=== PATIENT | male | born 1940 | race Caucasian/White ===

== ENCOUNTER → 2017-03-08 | Outpatient (CLI) | payer MEDICARE ==
[2016-03-05 11:10] VITALS: BP 134/84
[~2017-03-08] MED LIST: ASPIRIN ADULT L81 M3 PO; CALCIUM1 CAP PO; GAS DISTRESS1 TAB PO; LORAZEPAM2 MG PO; MULTI VITAMINS1 TAB PO; PRILOSEC 20MG20 MG PO; [UNRECOGNIZED DRUG - OTHER] NS
== END ==
LOC: RAD 09:39
DX: M54.5 Low back pain (principal); M51.46 Schmorl's nodes, lumbar region

== ENCOUNTER → 2017-03-26 | Outpatient (CLI) | payer MEDICARE ==
[2016-03-05 11:10] VITALS: BP 134/84
== END ==
LOC: LAB 16:03
DX: M85.89 Other specified disorders of bone density and structure, multiple sites (principal); E03.4 Atrophy of thyroid (acquired)

== ENCOUNTER → 2021-10-06 | Outpatient (CLI) | payer MEDICARE | LOC: RAD 15:26 | DX: M43.8X5 Other specified deforming dorsopathies, thoracolumbar region (principal) ==

== ENCOUNTER 2022-12-08 10:11 | Inpatient (IN) | payer MEDICARE ==
[~2022-12-08] VITALS: Ht 170.2 cm; Wt 58.5 kg
[2022-12-08] MEDS ORDERED: ASCORBIC ACID500 M3 PO (11:39)
[2022-12-08] MEDS ORDERED: CALCIUM CARBON500 M3 PO (11:43)
[2022-12-08] MEDS ORDERED: CETIRIZINE HCL10 MG PO (11:44)
[2022-12-08] MEDS ORDERED: ROXICODONE 55 MG/TAB PO (11:46)
[2022-12-08] MEDS ORDERED: VITAMIN D-40010 MCG PO (11:47)
[2022-12-08] MEDS ORDERED: ATIVAN1 M1 PO (11:49)
[2022-12-08] MEDS ORDERED: TYLENOL 325MG325 MG PO (11:52)
[2022-12-08] MEDS ORDERED: GOOD SENSE ASPI81 M1 PO (11:53)
[2022-12-08] MEDS ORDERED: MULTIVITAMIN1 EACH PO (11:54)
[2022-12-08] MEDS ORDERED: PRILOSEC 20MG20 MG PO (11:55)
[2022-12-08] MEDS ORDERED: GAS RELIEF125 MG PO (11:56)
[2022-12-08 12:51] VITALS: BP 122/84
[2022-12-08 13:30] LABS: BASO # 0.01 K/mm3 (0.02-0.10); EOS # 0.06 K/mm3 (0.04-0.40); EOS % 0.5 % (0.0-4.0); HEMATOCRIT 33.5 % (42.0-52.0); HEMOGLOBIN 11.1 g/dL (13.5-18.0); LYMPH# 0.61 K/mm3 (1.50-4.00); MEAN CELL VOLUME 105 fl (78-100); MEAN CORPUSCULAR HEMOGLOBIN 35 pg (27-31); MEAN CORPUSCULAR HGB CONC 33 g/dL (33-37); MONO # 1.41 K/mm3 (0.20-0.80); NEU # 9.99 K/mm3 (1.40-6.50); PLATELET COUNT 219 K/mm3 (130-400); RED CELL DISTRIBUTION WIDTH 13.3 % (11.5-14.5); WHITE BLOOD COUNT 12.3 K/mm3 (4.8-10.8)
[2022-12-08 13:33] LABS: ALBUMIN 3.5 g/dL (3.4-4.8)
[2022-12-08 13:34] LABS: POTASSIUM 4.4 mmol/L (3.5-5.1)
[2022-12-08 13:35] LABS: CALCIUM 9.7 mg/dL (8.3-10.5)
[2022-12-08 13:36] LABS: TOTAL PROTEIN 7.2 g/dL (6.2-8.1)
[2022-12-08 13:38] LABS: TOTAL BILIRUBIN 1.2 mg/dL (0.2-1.2)
[2022-12-08 15:54] LABS: URINE APPEARANCE CLEAR; URINE BILIRUBIN NEGATIVE (NEGATIVE); URINE BLOOD NEGATIVE (NEGATIVE); URINE COLOR YELLOW; URINE GLUCOSE NEGATIVE (NEGATIVE); URINE KETONE NEGATIVE (NEGATIVE); URINE LEUKOCYTE ESTERASE NEGATIVE (NEGATIVE); URINE NITRATE NEGATIVE (NEGATIVE); URINE PROTEIN(semi-quant) 1+ (NEGATIVE); URINE UROBILINOGEN NORMAL (NORMAL)
[2022-12-08 15:55] LABS: URINE MUCUS PRESENT (NOT PRESENT)
[2022-12-08 17:02] VITALS: BP 131/81
[2022-12-08 17:12] VITALS: BP 131/81
[2022-12-08 17:39] VITALS: BP 131/81
[2022-12-09 06:17] VITALS: BP 150/84
[2022-12-09 09:51] LABS: URINE APPEARANCE CLEAR; URINE BILIRUBIN 1+ (NEGATIVE); URINE BLOOD NEGATIVE (NEGATIVE); URINE COLOR YELLOW; URINE GLUCOSE NEGATIVE (NEGATIVE); URINE KETONE NEGATIVE (NEGATIVE); URINE LEUKOCYTE ESTERASE NEGATIVE (NEGATIVE); URINE MUCUS PRESENT (NOT PRESENT); URINE NITRATE NEGATIVE (NEGATIVE); URINE PROTEIN(semi-quant) 1+ (NEGATIVE); URINE UROBILINOGEN 1 mg/dL (NORMAL); URINE WBC 0-1 /hpf (0-3)
[2022-12-09 17:42] VITALS: BP 135/80
[2022-12-10 06:04] VITALS: BP 144/88
[2022-12-10 17:52] VITALS: BP 120/81
[2022-12-11 05:37] VITALS: BP 121/75
[2022-12-11 17:08] VITALS: BP 103/65
[2022-12-12 05:50] VITALS: BP 152/86
[2022-12-12 14:49] VITALS: BP 108/70
[2022-12-13 06:12] VITALS: BP 129/78
[2022-12-13 17:14] VITALS: BP 111/75
[2022-12-14 06:05] VITALS: BP 117/75
[2022-12-14 15:44] VITALS: BP 106/70
[2022-12-14 16:06] LABS: BASO # 0.03 K/mm3 (0.02-0.10); EOS # 0.17 K/mm3 (0.04-0.40); EOS % 1.4 % (0.0-4.0); HEMATOCRIT 32.6 % (42.0-52.0); HEMOGLOBIN 10.5 g/dL (13.5-18.0); LYMPH# 0.62 K/mm3 (1.50-4.00); MEAN CELL VOLUME 108 fl (78-100); MEAN CORPUSCULAR HEMOGLOBIN 35 pg (27-31); MEAN CORPUSCULAR HGB CONC 32 g/dL (33-37); MONO # 0.94 K/mm3 (0.20-0.80); NEU # 10.35 K/mm3 (1.40-6.50); PLATELET COUNT 403 K/mm3 (130-400); RED BLOOD COUNT 3.02 M/mm3 (4.20-5.60); RED CELL DISTRIBUTION WIDTH 13.8 % (11.5-14.5); WHITE BLOOD COUNT 12.3 K/mm3 (4.8-10.8)
[2022-12-14 16:10] LABS: ALBUMIN 3.2 g/dL (3.4-4.8); POTASSIUM 4.6 mmol/L (3.5-5.1); SODIUM 129 mmol/L (136-145)
[2022-12-14 16:11] LABS: CALCIUM 9.3 mg/dL (8.3-10.5)
[2022-12-14 16:12] LABS: GLUCOSE 93 mg/dL (75-110); TOTAL PROTEIN 6.5 g/dL (6.2-8.1)
[2022-12-14 16:13] LABS: CARBON DIOXIDE 26 mmol/L (23-31)
[2022-12-14 16:14] LABS: TOTAL BILIRUBIN 0.8 mg/dL (0.2-1.2)
[2022-12-14 16:18] LABS: AST-SGOT 33 U/L (5-34)
[2022-12-14 16:19] LABS: ALT/SGPT 31 U/L (0-55)
[2022-12-14 16:26] LABS: TROPONIN-I < 0.030 ng/mL (<0.030)
[2022-12-14 16:33] LABS: URINE APPEARANCE CLEAR; URINE BILIRUBIN 1+ (NEGATIVE); URINE BLOOD NEGATIVE (NEGATIVE); URINE COLOR YELLOW; URINE GLUCOSE NEGATIVE (NEGATIVE); URINE KETONE NEGATIVE (NEGATIVE); URINE LEUKOCYTE ESTERASE NEGATIVE (NEGATIVE); URINE NITRATE NEGATIVE (NEGATIVE); URINE PROTEIN(semi-quant) NEGATIVE (NEGATIVE); URINE UROBILINOGEN 1 mg/dL (NORMAL); URINE WBC 0-1 /hpf (0-3)
[2022-12-14 16:37] LABS: URINE MUCUS PRESENT (NOT PRESENT)
[2022-12-14 16:44] LABS: D-DIMER 8.81 mg/L FEU (0.15-0.50)
[2022-12-14 17:07] VITALS: BP 106/70
[2022-12-15 05:43] VITALS: BP 122/80
[2022-12-15 17:18] VITALS: BP 133/89
[2022-12-16 06:01] VITALS: BP 137/78
[2022-12-16 08:00] VITALS: BP 138/86
[2022-12-16 17:04] VITALS: BP 103/68
[2022-12-17 05:47] VITALS: BP 129/80
[2022-12-17 17:52] VITALS: BP 138/85
[2022-12-18 06:15] VITALS: BP 164/91
[2022-12-18 17:42] VITALS: BP 138/87
[2022-12-19 06:17] VITALS: BP 161/84
[2022-12-19 15:17] VITALS: BP 148/81
[2022-12-20 06:09] VITALS: BP 166/91
[2022-12-20 17:40] VITALS: BP 148/86
[2022-12-21 05:54] VITALS: BP 164/94
[2022-12-21 18:49] VITALS: BP 131/83
[2022-12-22 06:19] VITALS: BP 160/94
[2022-12-22 17:34] VITALS: BP 119/81
[2022-12-23 05:32] VITALS: BP 137/84
[2022-12-23 07:27] LABS: BASO # 0.04 K/mm3 (0.02-0.10); EOS # 0.16 K/mm3 (0.04-0.40); EOS % 2.5 % (0.0-4.0); HEMATOCRIT 32.2 % (42.0-52.0); HEMOGLOBIN 10.8 g/dL (13.5-18.0); LYMPH# 0.82 K/mm3 (1.50-4.00); MEAN CELL VOLUME 105 fl (78-100); MEAN CORPUSCULAR HEMOGLOBIN 35 pg (27-31); MEAN CORPUSCULAR HGB CONC 34 g/dL (33-37); MEAN PLATELET VOLUME 9.3 fl (7.4-10.4); MONO # 1.03 K/mm3 (0.20-0.80); NEU # 4.18 K/mm3 (1.40-6.50); PLATELET COUNT 323 K/mm3 (130-400); RED BLOOD COUNT 3.07 M/mm3 (4.20-5.60); RED CELL DISTRIBUTION WIDTH 13.3 % (11.5-14.5); WHITE BLOOD COUNT 6.3 K/mm3 (4.8-10.8)
[2022-12-23 07:33] LABS: ALBUMIN 2.9 g/dL (3.4-4.8)
[2022-12-23 07:34] LABS: CALCIUM 8.7 mg/dL (8.3-10.5)
[2022-12-23 07:35] LABS: TOTAL PROTEIN 5.9 g/dL (6.2-8.1)
[2022-12-23 07:37] LABS: TOTAL BILIRUBIN 0.5 mg/dL (0.2-1.2)
[2022-12-23 17:08] VITALS: BP 117/76
[2022-12-24 05:44] VITALS: BP 163/84
[2022-12-24 17:13] VITALS: BP 120/78
[2022-12-25 06:21] VITALS: BP 148/93
[2022-12-25 17:16] VITALS: BP 154/72
[2022-12-26 05:49] VITALS: BP 136/82
[2022-12-26 17:07] VITALS: BP 124/80
[2022-12-27 06:09] VITALS: BP 150/89
[2022-12-27 17:13] VITALS: BP 135/78
[2022-12-28 05:26] VITALS: BP 144/86
== END 2022-12-28 12:09 | disposition home health service (06) | DRG 559 ==
LOC: MED/SURG 10:11
PROVIDERS: Family Medicine; Nurse Practitioner; ADMIT Physician Assistant
DX: S22.089D Unspecified fracture of T11-T12 vertebra, subsequent encounter for fracture with routine healing (principal); J18.9 Pneumonia, unspecified organism; S22.49XD Multiple fractures of ribs, unspecified side, subsequent encounter for fracture with routine healing; S42.101D Fracture of unspecified part of scapula, right shoulder, subsequent encounter for fracture with routine healing; K44.9 Diaphragmatic hernia without obstruction or gangrene; K21.9 Gastro-esophageal reflux disease without esophagitis; R53.81 Other malaise; W10.9XXD Fall (on) (from) unspecified stairs and steps, subsequent encounter; Z20.822 Contact with and (suspected) exposure to COVID-19
CPT/HCPCS: J0696; J1940; J7050; Q9967

== ENCOUNTER → 2023-01-12 | Outpatient (CLI) | payer MEDICARE ==
[~2023-01-12] MED LIST changes: +ASCORBIC ACID500 M3 PO; +ATIVAN1 M1 PO; +CALCIUM CARBON500 M3 PO; +CETIRIZINE HCL10 MG PO; +GAS RELIEF125 MG PO; +GOOD SENSE ASPI81 M1 PO; +MULTIVITAMIN1 EACH PO; +ROXICODONE 55 MG/TAB PO; +TYLENOL 325MG325 MG PO; +VITAMIN D-40010 MCG PO
[2023-01-12 12:27] LABS: BASO # 0.02 K/mm3 (0.02-0.10); EOS # 0.09 K/mm3 (0.04-0.40); HEMOGLOBIN 12.8 g/dL (13.5-18.0); LYMPH# 0.89 K/mm3 (1.50-4.00); MEAN CELL VOLUME 104 fl (78-100); MEAN CORPUSCULAR HEMOGLOBIN 34 pg (27-31); MEAN CORPUSCULAR HGB CONC 33 g/dL (33-37); MEAN PLATELET VOLUME 8.3 fl (7.4-10.4); MONO # 0.86 K/mm3 (0.20-0.80); NEU # 6.78 K/mm3 (1.40-6.50); PLATELET COUNT 319 K/mm3 (130-400); RED BLOOD COUNT 3.74 M/mm3 (4.20-5.60); RED CELL DISTRIBUTION WIDTH 13.9 % (11.5-14.5); WHITE BLOOD COUNT 8.7 K/mm3 (4.8-10.8)
== END ==
LOC: LAB 11:54
PROVIDERS: Internal Medicine
DX: Z12.5 Encounter for screening for malignant neoplasm of prostate (principal); D64.9 Anemia, unspecified; M81.0 Age-related osteoporosis without current pathological fracture; E78.2 Mixed hyperlipidemia; C44.91 Basal cell carcinoma of skin, unspecified; F41.1 Generalized anxiety disorder; J18.9 Pneumonia, unspecified organism; K44.9 Diaphragmatic hernia without obstruction or gangrene; M48.54XA Collapsed vertebra, not elsewhere classified, thoracic region, initial encounter for fracture; Y95 Nosocomial condition

== ENCOUNTER → 2023-07-20 | Outpatient (CLI) | payer MEDICARE | LOC: RAD 10:56 | DX: R14.0 Abdominal distension (gaseous) (principal) ==

== ENCOUNTER → 2024-03-13 | Outpatient (CLI) | payer MEDICARE ==
[2024-03-13 13:15] LABS: BASO # 0.02 K/mm3 (0.02-0.10); EOS % 1.6 % (0.0-4.0); HEMATOCRIT 42.2 % (42.0-52.0); HEMOGLOBIN 14.2 g/dL (13.5-18.0); LYMPH# 0.66 K/mm3 (1.50-4.00); MEAN CELL VOLUME 106 fl (78-100); MEAN CORPUSCULAR HEMOGLOBIN 36 pg (27-31); MEAN CORPUSCULAR HGB CONC 34 g/dL (33-37); MEAN PLATELET VOLUME 8.5 fl (7.4-10.4); MONO # 0.79 K/mm3 (0.20-0.80); PLATELET COUNT 226 K/mm3 (130-400); RED BLOOD COUNT 3.97 M/mm3 (4.20-5.60); WHITE BLOOD COUNT 6.1 K/mm3 (4.8-10.8)
[2024-03-13 13:24] LABS: CALCIUM 9.2 mg/dL (8.3-10.5)
[2024-03-13 13:25] LABS: TOTAL PROTEIN 7.1 g/dL (6.2-8.1)
[2024-03-13 13:27] LABS: TOTAL BILIRUBIN 0.5 mg/dL (0.2-1.2)
[2024-03-13 13:32] LABS: MAGNESIUM 1.82 mg/dL (1.60-2.60)
[2024-03-13 22:01] LABS: TESTOSTERONE 345 ng/dL (221-716)
[2024-03-13 22:20] LABS: FOLATE (FOLIC ACID) 14.8 ng/mL (2.0-20.0)
== END ==
LOC: RAD 12:22
PROVIDERS: Internal Medicine
DX: Z12.11 Encounter for screening for malignant neoplasm of colon (principal); Z12.5 Encounter for screening for malignant neoplasm of prostate; K44.9 Diaphragmatic hernia without obstruction or gangrene; E78.2 Mixed hyperlipidemia; K90.9 Intestinal malabsorption, unspecified; C43.9 Malignant melanoma of skin, unspecified; F52.21 Male erectile disorder; R06.00 Dyspnea, unspecified

== ENCOUNTER → 2024-06-06 | Outpatient (CLI) | payer MEDICARE ==
[2024-06-06 11:20] LABS: BASO # 0.03 K/mm3 (0.02-0.10); EOS # 0.08 K/mm3 (0.04-0.40); EOS % 1.3 % (0.0-4.0); HEMATOCRIT 39.6 % (42.0-52.0); HEMOGLOBIN 13.2 g/dL (13.5-18.0); LYMPH# 0.66 K/mm3 (1.50-4.00); MEAN CELL VOLUME 109 fl (78-100); MEAN CORPUSCULAR HEMOGLOBIN 36 pg (27-31); MEAN CORPUSCULAR HGB CONC 33 g/dL (33-37); MEAN PLATELET VOLUME 8.2 fl (7.4-10.4); MONO # 0.82 K/mm3 (0.20-0.80); NEU # 4.61 K/mm3 (1.40-6.50); PLATELET COUNT 224 K/mm3 (130-400); RED BLOOD COUNT 3.63 M/mm3 (4.20-5.60); RED CELL DISTRIBUTION WIDTH 12.5 % (11.5-14.5); WHITE BLOOD COUNT 6.2 K/mm3 (4.8-10.8)
[2024-06-06 11:22] LABS: ALBUMIN 3.7 g/dL (3.4-4.8)
[2024-06-06 11:24] LABS: CALCIUM 9.7 mg/dL (8.3-10.5)
[2024-06-06 11:25] LABS: TOTAL PROTEIN 6.6 g/dL (6.2-8.1)
[2024-06-06 11:27] LABS: TOTAL BILIRUBIN 0.5 mg/dL (0.2-1.2)
[2024-06-06 11:31] LABS: MAGNESIUM 1.69 mg/dL (1.60-2.60)
== END ==
LOC: LAB 11:00
PROVIDERS: Internal Medicine
DX: D64.9 Anemia, unspecified (principal); R06.00 Dyspnea, unspecified; E44.0 Moderate protein-calorie malnutrition

== ENCOUNTER → 2024-08-24 | Outpatient (CLI) | payer MEDICARE ==
[2024-08-24 11:28] LABS: HEMATOCRIT 35.8 % (42.0-52.0); HEMOGLOBIN 11.7 g/dL (13.5-18.0); MEAN CELL VOLUME 112 fl (78-100); MEAN CORPUSCULAR HEMOGLOBIN 36 pg (27-31); MEAN CORPUSCULAR HGB CONC 33 g/dL (33-37); MEAN PLATELET VOLUME 8.2 fl (7.4-10.4); PLATELET COUNT 292 K/mm3 (130-400); RED BLOOD COUNT 3.21 M/mm3 (4.20-5.60); RED CELL DISTRIBUTION WIDTH 12.8 % (11.5-14.5); WHITE BLOOD COUNT 8.2 K/mm3 (4.8-10.8)
[2024-08-24 11:37] LABS: ALBUMIN 3.5 g/dL (3.4-4.8)
[2024-08-24 11:38] LABS: CALCIUM 9.3 mg/dL (8.3-10.5)
[2024-08-24 11:40] LABS: TOTAL PROTEIN 6.9 g/dL (6.2-8.1)
[2024-08-24 11:41] LABS: TOTAL BILIRUBIN 0.4 mg/dL (0.2-1.2)
[2024-08-24 11:46] LABS: MAGNESIUM 1.61 mg/dL (1.60-2.60)
[2024-08-24 11:54] LABS: LYMPHOCYTE 5 % (20-51); MONOCYTE 7 % (3-10); NEUTROPHILS 85 % (42-75)
[2024-08-24 22:54] LABS: PTH,INTACT 64.5 pg/mL (6.6-88.9)
== END ==
LOC: LAB 11:00
PROVIDERS: Internal Medicine
DX: E78.2 Mixed hyperlipidemia (principal); D64.9 Anemia, unspecified; M81.0 Age-related osteoporosis without current pathological fracture; K90.9 Intestinal malabsorption, unspecified

== ENCOUNTER 2024-09-26 14:07 | Inpatient (IN) | payer MEDICARE ==
[~2024-09-26] VITALS: Ht 170.2 cm; Wt 40.5 kg
[2024-09-26 16:00] VITALS: BP 124/80
[2024-09-26] MEDS ORDERED: FLUTICASON0.05 MG/Ac NS (17:25)
[2024-09-26] MEDS ORDERED: LINEZOLID PO (17:25)
--- NOTE | 2024-09-26 17:42 | NUR ---
PATIENT ARRIVED WITH FROM [facility]IA [facility]. HE WAS ASSISTED X2 OUT OF VEHICLE INTO WHEELCHAIR AND INTO ROOM. HE HAS A SPECIAL PRESSURE REDUCTION MATTRESS DUE TO HIS PRESSURE ULCERS ON THORACIC SPICE X3 AND 2 ON COCCYX. PROVIDER AND WOUND CARE NURSE CLEANED, MEASURED AND DRESSED ULCERS ON PATIENT. (PLEASE SEE PROVIDERS NOTE ON WOUND CARE AND PRESSURE ULCER DOCUMENTATION, MARIAN CESPEDES.) PROVIDER AND WOUND CARE NURSE ALSO CLEANED AND REMOVED THE DRY FLAKY SKIN ON PATIENT'S FEET. PATIENT ALSO HAS ON LEFT HEEL A RED, BOGGY, NON-BLANCHABLE AREA. PATIENT DENIES PAIN WHEN ASKED. HE IS 93LBS. THERE WAS 3+ PITTING EDEMA NOTED IN RIGHT FOOT. HE IS ABLE TO MOVE EXTREMITIES BUT LIMITED ON RANGE OF MOTION. PATIENT STATES THAT HE DOES NOT WALK WELL OR FAR. HE REQUESTED AND URINAL TO HAVE A BEDSIDE AND WILL USE CALL LIGHT IF HE NEEDS TO HAVE A BM, AND WOULD PREFER A CAMODE TO BE NEXT TO BED FOR THAT. HE IS ALERT AND ORIENTED X4. HE IS PLEASENT AND VERY COOPERATIVE WITH CARE. NASAL SWAB OBTAINED TO TEST FOR MRSA. PATIENT IS IN BED AT THIS TIME. BLUE SOCKS ARE CURRENTLY ON PATIENT THE YELLOW ONES WERE TOO BIG. PATIENT IS REQUESTING ONE SIDE RAIL BE DONE SO HE CAN REACH THE SIDE TABLE, BUT THE MATTRESS WILL NOT ROTATE SIDE TO SIDE IF A SIDE RAIL IS DOWN. PROVIDER WILL TALK WITH PATIENT ABOUT THE MATTRESS AND THE PURPOSE OF IT ROTATING TO HELP KEEP PRESSURE OFF HIS BACK. STAFF WILL ALSO ASSIST MAKING SURE PATIENT IS ROTATED ORDERED. STAFF WILL CONTINUE TO MONITOR.
[2024-09-26] MEDS ORDERED: Acetaminophen 500 MG TAB PO PRN ×2 (18:00→18:30)
[2024-09-26] MEDS ORDERED: Polyethylene Glycol 3350 Powder 17 GM PACKET PO PRN (18:00)
[2024-09-26] MEDS ORDERED: Docusate Sodium 100 MG CAP PO PRN (18:15)
[2024-09-26] MEDS ORDERED: ACETAMINOPHEN500 M7 PO (18:17)
[2024-09-26 19:41] VITALS: BP 164/98
[2024-09-26] MEDS ORDERED: LORazepam 0.5 MG TABLET PO SCH (21:00)
[2024-09-26] MEDS ORDERED: Cetirizine 10 MG TAB PO SCH (21:00)
[2024-09-26] MEDS ORDERED: Linezolid 600 MG TAB PO SCH (21:00)
[2024-09-27 05:58] LABS: BASO # 0.02 K/mm3 (0.02-0.10); EOS # 0.04 K/mm3 (0.04-0.40); EOS % 0.8 % (0.0-4.0); HEMATOCRIT 36.1 % (42.0-52.0); HEMOGLOBIN 11.6 g/dL (13.5-18.0); LYMPH# 0.69 K/mm3 (1.50-4.00); MEAN CELL VOLUME 115 fl (78-100); MEAN CORPUSCULAR HEMOGLOBIN 37 pg (27-31); MEAN CORPUSCULAR HGB CONC 32 g/dL (33-37); MEAN PLATELET VOLUME 8.7 fl (7.4-10.4); MONO # 0.62 K/mm3 (0.20-0.80); PLATELET COUNT 231 K/mm3 (130-400); RED BLOOD COUNT 3.14 M/mm3 (4.20-5.60); RED CELL DISTRIBUTION WIDTH 13.6 % (11.5-14.5); WHITE BLOOD COUNT 4.8 K/mm3 (4.8-10.8)
[2024-09-27 06:14] LABS: CALCIUM 9.2 mg/dL (8.3-10.5)
[2024-09-27 06:15] LABS: TOTAL PROTEIN 6.3 g/dL (6.2-8.1)
[2024-09-27 06:17] LABS: TOTAL BILIRUBIN 0.3 mg/dL (0.2-1.2)
--- NOTE | 2024-09-27 07:00 | NUR ---
RESUMED CARE FROM STACEY SCHOFIELD.
--- NOTE | 2024-09-27 07:35 | NUR ---
PATIENT REFUSING TO GET OUT OF BED WITH electric spot welder. THIS RN WITH STACEY MC. EDUCATION PROVIDED TO PATIENT ON IMPORTANCE OF OFFLOADING WITH THORACIC ULCERS. PATIENT AGREEABLE TO GET OUT OF BED FOR MEALS. PATIENT REQUESTS CHANGES IN TIME FOR MEDICATIONS WELL MEDICATIONS D/C'D THAT HE IS NO LONGER TAKEN. AL HULL NOTIFIED AND NEW ORDERS OBTAINED. NO OTHER COMPLAINTS AT THIS TIME.
--- NOTE | 2024-09-27 07:43 | NUR ---
recieved report from Cesia IBARRA
[2024-09-27 07:55] VITALS: BP 155/99
[2024-09-27] MEDS ORDERED: Ascorbic Acid 500 MG TAB PO SCH (09:00)
[2024-09-27] MEDS ORDERED: Multivitamin TAB PO SCH (09:00)
[2024-09-27] MEDS ORDERED: Calcium Carbonate 500 MG TAB PO SCH (09:00)
[2024-09-27] MEDS ORDERED: Cholecalciferol (Vit D3) 25 MCG (1,000 Units) TAB PO SCH (09:00)
[2024-09-27] MEDS ORDERED: Fluticasone Nasal 50 MCG/Spray 16 GM BOTTLE NS SCH (09:00)
--- NOTE | 2024-09-27 09:17 | NUR ---
PT RESTING IN CHAIR THIS AM. HAD BREAKFAST AND TOOK MEDICATION WITHOUT DIFFICULTY. PT WAS EDUCATED ON MEDICATIONS AND THE IMPORTANCE OF SITTING UP IN THE CHAIR TO RELEIVE PRESSURE OF SORE SPOTS ON BACK. PT WAS AGREEABLE AND IS PLEASANT WHILE NURSE IN IN ROOM. PT DID NOT WANT NASAL SPRAY AT THIS TIME, WILL OFFER MEDICATION LATER ON THROUGHOUT THE DAY
--- NOTE | 2024-09-27 09:49 | NUR ---
[facility] RECEIVED. SED RATE 83 MM/HR CRP 5.75 PLACED IN CHART
[2024-09-27] MEDS ORDERED: Fluticasone Nasal 50 MCG/Spray 16 GM BOTTLE NS PRN (11:30)
--- NOTE | 2024-09-27 12:18 | NUR ---
NEGATIVE MRSA PCR RESULTS RECEIVED FROM LAB AT THIS TIME. AL HULL APRN NOTIFIED. NEW ORDER OBTAINED.
--- NOTE | 2024-09-27 16:34 | NUR ---
Pt resting in bed at this time. appears to be comfortable. Visitors this am. pt, daughter and educated on the importance of added protein for increased healing. pt worked with therapies, was able to ambulate with therapy this am. bedside commode in pt room as pt is able to ambulate to use the bsc. call light and phone within reach
[2024-09-27 19:45] VITALS: BP 142/84
--- NOTE | 2024-09-27 20:00 | NUR ---
Patient rests in bed on right side. Denies pain at this time. Alert and oriented. HS meds all reviewed and taken 1 at a time whole without problems. Bed is set to reposition patient.
[2024-09-27] MEDS ORDERED: Acetaminophen 500 MG TAB PO SCH (22:00)
--- NOTE | 2024-09-28 03:02 | NUR ---
Patient has been resting with eyes closed. Respirations with ease.
[2024-09-28 08:44] VITALS: BP 130/82
[2024-09-28 19:00] VITALS: BP 130/74
[2024-09-29 07:00] VITALS: BP 144/94
--- NOTE | 2024-09-29 07:00 | NUR ---
RESUMED CARE FROM STACEY ROSALES.
--- NOTE | 2024-09-29 10:40 | NUR ---
AL HULL, MUSIC BOX MECHANIC IN TO DRESS THORACIC AND SACRAL ULCERS AT THIS TIME.
--- NOTE | 2024-09-29 13:36 | NUR ---
Spoke with Carlos, . She is moving forward in finding funding to have D[facility]lo move into a alf care facility. She feels she is no longer able to care for Diallo in their home.
--- NOTE | 2024-09-29 14:34 | NUR ---
Gave Shey a list of pain coordinator care facilities. Also gave a flyer on [place] [employer] [facility]. Shey had concerns that her income would be considered when applying for Medicaid assistance with pain coordinator care.
--- NOTE | 2024-09-29 18:50 | NUR ---
REPORT TO STACEY SCHOFIELD.
[2024-09-29 19:00] VITALS: BP 122/77
[2024-09-30 08:00] VITALS: BP 125/69
[2024-09-30 19:00] VITALS: BP 145/99
--- NOTE | 2024-09-30 19:20 | NUR ---
Report received from Vanesa IBARRA. Patient rests in bed, propt on L side. Watching TV. A/O x4. Denies pain at this time. Denies SOA or cough. Using urinal at bedside. Voids lyubov urine. Assessment completed. 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 Several staff in to accomate requests. Assessment completed.
--- NOTE | 2024-10-01 06:51 | NUR ---
AM medications taken at 0620. [facility] down at that time. See paper JAN.
[2024-10-01 07:00] VITALS: BP 133/90
--- NOTE | 2024-10-01 07:00 | NUR ---
RESUMED CARE FROM MIRNA ÁLVAREZ.
--- NOTE | 2024-10-01 07:20 | NUR ---
Report to Diane IBARRA.
--- NOTE | 2024-10-01 07:44 | NUR ---
Report recieved from Shivani BRADLEY
--- NOTE | 2024-10-01 10:58 | NUR ---
PT RESTING IN BED AT THIS TIME, FAMILY AT BEDSIDE. UPDATE GIVEN TO FAMILY. PT LIPS DRY AND BLOODY THIS AM. ORAL CARE PROVIDED, THIS NURSE LOOKED IN MOUTH, NO OPEN SORES. CHAPSTICK WAS ON TABLE, REMINDED PT TO USE. CALL LIGHT AND PERSONAL BELONGINGS WITHIN REACH
--- NOTE | 2024-10-01 13:30 | NUR ---
PT HAD WOUND CARE TODAY, HAD A BLISTER THAT OPENED ON LEFT HEEL THAT WAS BLEEDING. MEPILEX WAS APPLIED. PT IS IN FLOATING HEEL BOOTS AND NEED TO BE ON PT WHILE IN BED AND SITTING IN CHAIR.
--- NOTE | 2024-10-01 18:42 | NUR ---
REPORT GIVEN TO PREETI BRADLEY
[2024-10-01 19:00] VITALS: BP 130/81
--- NOTE | 2024-10-01 21:00 | NUR ---
Report received from Diane IBARRA. Patient rests in bed watching TV. bathhouse keeper light frequently for various reasons. A/O x4. Denies pain. Assessment completed. HS medications taken whole without difficulty. Call light in reach.
--- NOTE | 2024-10-02 06:13 | NUR ---
Awakened for am medications taken whole. Staff in to obtain weight. Rested on and off through the night.
[2024-10-02 06:54] LABS: BASO # 0.01 K/mm3 (0.02-0.10); EOS # 0.03 K/mm3 (0.04-0.40); EOS % 0.7 % (0.0-4.0); HEMATOCRIT 29.6 % (42.0-52.0); HEMOGLOBIN 9.4 g/dL (13.5-18.0); LYMPH# 0.78 K/mm3 (1.50-4.00); MEAN CELL VOLUME 116 fl (78-100); MEAN CORPUSCULAR HEMOGLOBIN 37 pg (27-31); MEAN CORPUSCULAR HGB CONC 32 g/dL (33-37); MEAN PLATELET VOLUME 9.4 fl (7.4-10.4); MONO # 0.24 K/mm3 (0.20-0.80); NEU # 3.17 K/mm3 (1.40-6.50); PLATELET COUNT 122 K/mm3 (130-400); RED BLOOD COUNT 2.56 M/mm3 (4.20-5.60); RED CELL DISTRIBUTION WIDTH 13.9 % (11.5-14.5); WHITE BLOOD COUNT 4.2 K/mm3 (4.8-10.8)
--- NOTE | 2024-10-02 06:58 | NUR ---
Report to Diane IBARRA
[2024-10-02 07:28] LABS: CALCIUM 9.7 mg/dL (8.3-10.5)
[2024-10-02 07:31] LABS: TOTAL BILIRUBIN 0.2 mg/dL (0.2-1.2)
[2024-10-02 07:40] VITALS: BP 153/95
--- NOTE | 2024-10-02 18:53 | NUR ---
REPORT TO STACEY SCHOFIELD.
[2024-10-02 19:25] VITALS: BP 124/79
--- NOTE | 2024-10-03 06:26 | NUR ---
PCT Darlin Hooper attempted to wake up pt to verify if he had any needs this morning and it proved to be difficult. Darlin Hooper relayed that information to this RN and I went to assess pt, pt was difficult to wake up but reacted to moderate verbal stimulus. pt received scheduled nightly 3mg lorazepan as per jan. This am this RN went in for morning meds and pt was again very difficult to awake, he needed constant stimulus to awake and stay awake, pt was able to swallow pill w/o difficulty. will pass along in report.
[2024-10-03 07:00] VITALS: BP 156/84
--- NOTE | 2024-10-03 07:00 | NUR ---
KANWAL, RN REPORTS PATIENT HAVING DIFFICULTY AWAKENING THIS AM. THIS RN AT BEDSIDE TO ASSESS. PATIENT AWOKE WITH MINIMAL STIMULI, VITAL SIGNS OBTAINED AND UNREMARKABLE AT 141/78, 98% RA, 67 HR, 16 RESPIRATIONS. PATIENT REMAINS IN BED, ALARMED, CALL LIGHT WITHIN REACH.
--- NOTE | 2024-10-03 07:00 | NUR ---
RESUMED CARE FROM STACEY SCHOFIELD.
--- NOTE | 2024-10-03 07:27 | NUR ---
PATIENTS WEIGHT NOTED TO BE 89LBS FROM ADMISSION WEIGHT OF 93LBS. AL HULL APRN NOTIFIED.
[2024-10-03] MEDS ORDERED: Lidocaine 2% Jelly 5 GM TUBE TOP PRN (07:45)
[2024-10-03] MEDS ORDERED: MEGESTROL 400 MG/10 ML PO SCH (09:00)
--- NOTE | 2024-10-03 14:40 | NUR ---
Connie Li APRN and STACEY España in for wound care at this time. Educated pt and PCT staff of triad cream to be applied.
--- NOTE | 2024-10-03 16:05 | NUR ---
PCT Samia, reports physical therapy admbulated pt to and from BR x2 this afternoon. However,pt is refusing to ambulate w/ assistance to BR at this time. Pt expresses he is only willing to continue use of his urinal at bedisde. PCT notified Connie Hooper APRN, of pt refusal. Connie stated she will discuss concern with pt.
--- NOTE | 2024-10-03 18:58 | NUR ---
RESUMED CARE FROM STACEY WHITE
[2024-10-03 19:00] VITALS: BP 93/54
--- NOTE | 2024-10-03 19:00 | NUR ---
REPORT TO STACEY SCHOFIELD.
[2024-10-04 07:04] LABS: BASO # 0.01 K/mm3 (0.02-0.10); EOS # 0.04 K/mm3 (0.04-0.40); HEMATOCRIT 28.2 % (42.0-52.0); HEMOGLOBIN 9.1 g/dL (13.5-18.0); MEAN CELL VOLUME 112 fl (78-100); MEAN CORPUSCULAR HEMOGLOBIN 36 pg (27-31); MEAN CORPUSCULAR HGB CONC 32 g/dL (33-37); MEAN PLATELET VOLUME 9.7 fl (7.4-10.4); MONO # 0.15 K/mm3 (0.20-0.80); NEU # 3.01 K/mm3 (1.40-6.50); PLATELET COUNT 88 K/mm3 (130-400); RED BLOOD COUNT 2.51 M/mm3 (4.20-5.60); RED CELL DISTRIBUTION WIDTH 13.9 % (11.5-14.5); WHITE BLOOD COUNT 3.8 K/mm3 (4.8-10.8)
[2024-10-04 07:23] LABS: ALBUMIN 3.1 g/dL (3.4-4.8)
[2024-10-04 07:25] LABS: CALCIUM 9.8 mg/dL (8.3-10.5)
[2024-10-04 07:26] LABS: TOTAL PROTEIN 6.1 g/dL (6.2-8.1)
[2024-10-04 07:28] LABS: TOTAL BILIRUBIN 0.2 mg/dL (0.2-1.2)
[2024-10-04 07:56] VITALS: BP 108/80
[2024-10-04] MEDS ORDERED: Folic Acid 1 MG TAB PO SCH (17:02)
[2024-10-04] MEDS ORDERED: Cyanocobalamin (Vit B-12) 1,000 MCG TAB PO SCH (17:03)
--- NOTE | 2024-10-04 19:40 | NUR ---
Report received from Vanesa IBARRA. Patient resting supine in bed. A/O x4. Denies pain. Assessment completed. Dressing to spine area CDI, sacrum and L heel dressing CDI. Heels floated. Patient calling several times a shift for various reasons, accomindated by staff. Swallows pills whole without difficulty and able to verbalize wants or needs.
[2024-10-04 19:51] VITALS: BP 111/76
--- NOTE | 2024-10-05 06:27 | NUR ---
Awake on and off through the night. Slept good portion of it. Worried about when lab is coming around this AM to draw his blood. AM medication taken without difficulty.
--- NOTE | 2024-10-05 06:51 | NUR ---
Report to Diane Caldera RN
[2024-10-05 07:40] VITALS: BP 124/79
--- NOTE | 2024-10-05 09:20 | NUR ---
PT VERY ADAMANT THROUGHOUT THE MORNING THAT HIS FAMILY WILL BE HERE TODAY TO PICK HIM UP TO TAKE HIM TO HIS MOMS . PATIENT HAD CALLED SEVERAL TIMES TO ASK WHEN THIS WOULD HAPPEN. PT IS ALERT AND ORIENTED. THEN CALLED NURSES STATION ASKING IF PATIENT WAS CONFUSED BECAUSE PATIENT'S MOM 2 YEARS AGO. THIS RN TALKED WITH PATIENT AND PATIENT ADMITTED THAT HE WAS TRYING TO COME UP WITH AN EXCUSE TO GO HOME FOR THE WEEKEND. PATIENT STATES "THIS BED IS ANNOYING AND UNCOMFORTABLE AND I JUST WANTED TO TAKE A BREAK FROM THE HOSPITAL FOR THANKSGIVING WEEKEND." DISCUSSED WITH PATIENT THAT IS NOT HOW THINGS WORK IN THE HOSPITAL AND PATIENT AGREEABLE TO STAY. INFORMED PATIENT THAT HIS FAMILY STATED THEY WILL BE IN TO SEE HIM THIS AFTERNOON BUT JUST FOR A VISIT AND NOT TO TAKE HIM HOME.
--- NOTE | 2024-10-05 11:18 | NUR ---
PT ALERT AND ORIENTED, HAS REFUSED TO GET OUT OF BED FOR THE MORNING. PT AGREED TO GET INTO CHAIR FOR LUNCH. DENIES PAIN. URINAL AT BEDSIDE. DRESSINGS ARE C/D/I, TO HAVE WOUND CARE WEDNESDAY, WEDNESDAY AND WEDNESDAY.
--- NOTE | 2024-10-05 18:56 | NUR ---
REPORT GIVEN TO STACEY SCHOFIELD
[2024-10-05 19:10] VITALS: BP 96/61
[2024-10-06 07:50] VITALS: BP 134/78
--- NOTE | 2024-10-06 10:38 | NUR ---
0800 PT UP TO BREAKFAST IN RECLINER. 1015 PT RETURNED TO BED. ALL BED RAILS ARE UP, BED IS TURNED ON. PT IS RESTING SUPINE, SURROUNDED BY PILLOWS.
--- NOTE | 2024-10-06 12:22 | NUR ---
PT HAS THREE THORACIC SPINE WOUNDS. A PROXIMAL THORACIC WOUND. A MIDDLE THORACIC SPINE WOUND. A DISTAL THORACIC SPINE WOUND. A COCCYX WOUND. A RIGHT ISHCIAL TUBEROSITY WOUND. PTS LEFT HEEL HAS AN OPENING OF SKIN.
--- NOTE | 2024-10-06 12:59 | NUR ---
PTS WILL BE HERE Wednesday10/09/2024 TO DISCUSS CARE BEYOND DISCHARGE FROM [facility]. THIS RN NOTIFIED JULIO Joy WITH [facility].
--- NOTE | 2024-10-06 14:09 | NUR ---
THIS NURSE AND STAFF ASSITED PT TRANSFER FROM CHAIR TO BED. HEEL BOOTS PLACED, AIR CHAMBER BED ACTIVIATED.
--- NOTE | 2024-10-06 20:50 | NUR ---
Report received from Vanesa IBARRA. Patient resting supine in bed watching TV. A/O x4. Denies pain. Assessment completed. Dressings to thoracic spine and sacrum CDI. Heels floated with heel protectors in place. Wound care received today per shift report. Uses call light frequently and able to make needs known. Swallows pills whole without difficulty. Denies wants or needs. Bed alarm on. Call light in reach.
[2024-10-06 20:53] VITALS: BP 106/68
--- NOTE | 2024-10-06 21:00 | NUR ---
Refused oral cares, states "I do it in the morning.".
--- NOTE | 2024-10-07 06:53 | NUR ---
Report to Vanesa IBARRA.
[2024-10-07 07:30] VITALS: BP 118/70
[2024-10-07 19:00] VITALS: BP 106/67
--- NOTE | 2024-10-07 19:30 | NUR ---
Report received from Vanesa IBARRA. Patient up in recliner, ZIPPER MACHINE OPERATOR's assisted to bed and positioned for comfort. Watching TV. Call light in reach.
--- NOTE | 2024-10-07 21:30 | NUR ---
PO HS medications taken whole without difficulty. Wants Tylenol at 2200. Denies pain or needs. Dressings to thoracic spine CDI.
--- NOTE | 2024-10-08 06:12 | NUR ---
Rested well this shift. Awakened for PO AM medications then promptly falls back to sleep. Denies wants or needs at this time.
--- NOTE | 2024-10-08 06:58 | NUR ---
Report Vanesa IBARRA
[2024-10-08 07:15] VITALS: BP 104/67
--- NOTE | 2024-10-08 07:54 | NUR ---
PCT COULD NOT OBTAIN VITALS RIGHT AWAY FROM PT. PT APPEARS VERY SLEEPY THIS MORNING. HE IS COOL TO THE TOUCH. PT IS OREINTED AND WANTED TO KNOW WHATS FOR BREAKFAST. THIS NURSE AND STAFF LEFT MONITORING EQUIPMENT ON AND WILL RE CHECK PTS TEMP AFTER BREAKFAST.
--- NOTE | 2024-10-08 09:26 | NUR ---
THIS RN CHECKED ON PATIENT. PT IS SLEEPY. RN SPOKE WITH PT AND EXPLAINED MEDICATION ADMINISTRATION. PT STATED "PILLS". PT FELL ASLEEP IMMEDIATLEY AFTER. RN WILL CHECK ON PT TO ADMINISTER MEDICATION.
--- NOTE | 2024-10-08 13:16 | NUR ---
1200 PT BEGAN TO EAT HIS LUNCH. PT IS EATING VERY SLOWLY. STAFF HAS ENCOURAGED HIM TO EAT, EVEN IF HIS FOOD NEEDS RE HEATED. PT IS ALERT AND OREINTED.
--- NOTE | 2024-10-08 15:00 | NUR ---
DRESSING CHANGED PER ORDER. PT TOLERATED WELL.
[2024-10-08 19:20] VITALS: BP 100/67
--- NOTE | 2024-10-08 19:21 | NUR ---
Report received from Vanesa IBARRA. Patient up in recliner and requesting to go to bed. BLUE PRINT CONTROL CLERK in to assist. Ambulates with 1:1 assist and walker from recliner to bed. Positioned for comfort. Assessment completed. Dressings to Sacrum and thoracic spine CDI. Heel protectors applied and heels floated. Call light in reach.
--- NOTE | 2024-10-09 05:31 | NUR ---
Resting well. Lab in to draw blood. Scheduled AM medication taken whole without difficulty.
[2024-10-09 05:42] LABS: HEMATOCRIT 26.5 % (42.0-52.0); HEMOGLOBIN 8.6 g/dL (13.5-18.0); MEAN CELL VOLUME 113 fl (78-100); MEAN CORPUSCULAR HEMOGLOBIN 37 pg (27-31); MEAN CORPUSCULAR HGB CONC 33 g/dL (33-37); MEAN PLATELET VOLUME 10.9 fl (7.4-10.4); RED BLOOD COUNT 2.34 M/mm3 (4.20-5.60); RED CELL DISTRIBUTION WIDTH 13.9 % (11.5-14.5); WHITE BLOOD COUNT 3.8 K/mm3 (4.8-10.8)
[2024-10-09 05:56] LABS: CALCIUM 9.6 mg/dL (8.3-10.5)
[2024-10-09 05:58] LABS: TOTAL PROTEIN 5.6 g/dL (6.2-8.1)
[2024-10-09 05:59] LABS: TOTAL BILIRUBIN 0.2 mg/dL (0.2-1.2)
[2024-10-09 06:09] LABS: PLATELET COUNT 38 K/mm3 (130-400)
[2024-10-09 06:10] LABS: LYMPHOCYTE 5 % (20-51); MONOCYTE 4 % (3-10); NEUTROPHILS 90 % (42-75)
[2024-10-09 06:11] LABS: OVALOCYTES 1+
--- NOTE | 2024-10-09 06:52 | NUR ---
Critical platelets of [address] Mercedes.
--- NOTE | 2024-10-09 06:57 | NUR ---
Report to Monse IBARRA.
[2024-10-09 07:35] VITALS: BP 103/63
--- NOTE | 2024-10-09 13:47 | NUR ---
Spoke with Shey, of [facility]. Dr. Mercedes explained Diallo's current condition. Candi gave information on Legal Services. [facility] [place] expained Hospice. Shey states she would like [facility] for exterminator care. Shey advises that she is having difficulties obtaining an admitted attorneys.
[2024-10-09] MEDS ORDERED: NS IV SCH (16:00)
[2024-10-09] MEDS ORDERED: DAPTOMYCIN IV SCH (16:00)
[2024-10-09 18:25] LABS: FOLATE (FOLIC ACID) >20.0 ng/mL (2.0-20.0)
[2024-10-09 19:32] VITALS: BP 114/76
--- NOTE | 2024-10-09 19:43 | NUR ---
Report received from Monse IBARRA. Patient rests supine in bed. RN assisted to bed from recliner pivot transfer. Tolerated well. A/O x4. Denies pain. Positioned for comfort. Dressings to spine/sacrum CDI. Heels floated, mepilex intact. Assessment completed. INT intact to RFA. Able to use call light and make needs known.
--- NOTE | 2024-10-10 06:10 | NUR ---
Rested well after 2200. Continues to void tea colored urine in urinal. Lovenox on hold.
--- NOTE | 2024-10-10 06:58 | NUR ---
Report to Monse IBARRA.
[2024-10-10 07:00] VITALS: BP 97/61
[2024-10-10 09:26] LABS: HEMATOCRIT 28.5 % (42.0-52.0); HEMOGLOBIN 8.9 g/dL (13.5-18.0); MEAN PLATELET VOLUME 11.1 fl (7.4-10.4); RED BLOOD COUNT 2.47 M/mm3 (4.20-5.60); WHITE BLOOD COUNT 4.1 K/mm3 (4.8-10.8)
--- NOTE | 2024-10-10 12:52 | NUR ---
critical manual plt count of 40 reported by lab. Patricia Gill notified.
--- NOTE | 2024-10-10 13:57 | NUR ---
Referral sent to [facility] in [place], They do not accept [employer] insurance for skilled care. They advised to call them when Medicaid application has been applied for and is received.
--- NOTE | 2024-10-10 15:29 | NUR ---
DISCHARGE RISK ASSESSMENT: HIGH RISK
--- NOTE | 2024-10-10 18:30 | NUR ---
PATIENT ALERT AND ORIENTED. HE WAS UPO IN RECLINER MOST OF THE DAY. HE HAS VERY LITTLE APPETITE. HE ATE HIS PUDDING AND DRANK SOME OF HIS SODA, BUT REFUSES TO EAT THE MEAT. HERE TO VISIT. WOUND CARE DONE BY PROVIDER AND WOUND CARE NURSE. PATIENT DENIES PAIN WHEN ASKED. PATIENT IS CURRENTLY RESTING IN BED. HE REFUSED SUPPER WHEN ASKED.
[2024-10-10 19:00] VITALS: BP 127/74
--- NOTE | 2024-10-10 19:15 | NUR ---
Report received from Monse IBARRA. Patient laying on R side. COMPARATOR OPERATOR in to provide cares. Patient refusing all cares, offer of snacks, Ensure or fluid. Refuses oral cares. States he just wants to be left alone he is comfortable. Assessment completed.
--- NOTE | 2024-10-10 21:36 | NUR ---
calls around 2109 to check on patient. States he was pretty sleepy also while she was here and she is wondering if it is the new IV antibiotic. States she will be here tomorrow AM for a meeting with Dr. Ann. Updated that patient has been lethargic and sleepy as well this PM. Patient now more awake when administering PO Ativan. Asking what time of day it is and is "wowed" by the time of night. Conversing more and advised that called tonight to check on him. Wants PO Tylenol at 2200 and denies wants or needs at this time.
--- NOTE | 2024-10-11 05:46 | NUR ---
Awakened by staff for AM medications and weight.
--- NOTE | 2024-10-11 06:46 | NUR ---
Report to Soledad IBARRA
[2024-10-11 07:43] VITALS: BP 94/58
[2024-10-11 08:11] LABS: HEMATOCRIT 26.5 % (42.0-52.0); HEMOGLOBIN 8.4 g/dL (13.5-18.0); MEAN PLATELET VOLUME 10.5 fl (7.4-10.4); RED BLOOD COUNT 2.33 M/mm3 (4.20-5.60); RED CELL DISTRIBUTION WIDTH 13.9 % (11.5-14.5)
--- NOTE | 2024-10-11 08:57 | NUR ---
0830 ROBB MELENDEZ NOTIFIED OF THE LOW PLATELETS 26.
--- NOTE | 2024-10-11 09:23 | NUR ---
PT IS MORE LETHARGIC AND WANTING TO SLEEP. HE REFUSED BREAKFAST AND INSISTED ON STAYING IN BED. HE WILL SPEAK IF SPOKEN TOO BUT OTHERWISE WANTS TO SLEEP.
--- NOTE | 2024-10-11 13:08 | NUR ---
PTS FAMILY BROUGHT A HOTDOG FROM [employer]. THE PT ATE THE HOTDOG AND 1 MOZZERELLA STICK. PT ALSO ATE 1/2 A PIECE OF PUMPKIN PIE.
--- NOTE | 2024-10-11 13:36 | NUR ---
Left heel was oozing some blood after ambulating to the restroom. After consulting with ROBB Rosales, this RN applied triad cream to dry/scaly legs and feet and some bacitracin to the left heel followed by a Mepilex foam.
[2024-10-11] MEDS ORDERED: predniSONE 20 MG TAB PO SCH (15:47)
[2024-10-11 19:27] VITALS: BP 104/65
--- NOTE | 2024-10-11 19:40 | NUR ---
Report received from Soledad IBARRA. Patient sitting up in recliner filling out menu's for tomorrow. A/O x4. Denies pain or needs. Staff in to assist to bed. Receives phone call from , so staff will return to assist to bed and cares when finished.
--- NOTE | 2024-10-11 21:36 | NUR ---
Remains up in recliner. Staff has been back to room x2 to assist to bed. Patient working on menus for tomorrow, which staff has helped fill out but patient insists on reading menu over and over and states not ready to go to bed. HARRIET garay taken at this time.
--- NOTE | 2024-10-11 22:08 | NUR ---
HS Tylenol given. Remains up and states "I am not ready yet" when asked about going to bed. Continues reading over menus for tomorrow.
--- NOTE | 2024-10-11 22:31 | NUR ---
Patient assisted to bed at this time.
--- NOTE | 2024-10-12 06:12 | NUR ---
Rested well after going to bed around 2230. Weight down 1 lb from yesterday. AM medication taken. L heel dressing off and replaced.
--- NOTE | 2024-10-12 06:54 | NUR ---
Report to Diane IBARRA.
[2024-10-12 07:26] VITALS: BP 113/71
--- NOTE | 2024-10-12 08:30 | NUR ---
UPON ARRIVAL TO ROOM, PATIENT SITTING IN CHAIR LEANING TO RIGHT SIDE. NOTABLE TREMORS. PATIENT DENIES ANY PAIN. SKIN DRY AND PALE. ASSESSMENT COMPLETED. PATIENT TACHYCARDIC. ALERT TO SELF ONLY. THIS RN ASSISTED PATIENT WITH AM MEDICATIONS ONE PILL AT A TIME. THIS RN WAS ABLE TO HELP PATIENT CONSUME 3 BITES OF BREAKFAST, PT THEN DENIED MORE AND REFUSED ENSURE. MEPILEX IN PLACE TO BILATERAL HEELS, DRESSING IN PLACE TO SPINE. PATIENT REMAINS IN RECLINER, ALARMED, CALL LIGHT WITHIN REACH. DR. DEAL NOTIFIED OF PATIENT STATUS.
--- NOTE | 2024-10-12 12:10 | NUR ---
PATIENT REMAINS CONFUSED THIS AFTERNOON, STATING HE DIDN'T GET WHAT HE ORDERED FOR LUNCH ALTHOUGH IT MATCHES THE ORDER SHEET FILLED OUT YESTERDAY. NEW LUNCH REQUEST SENT TO KITCHEN AND REORIENTATION ATTEMPTED WITH AGGITATION FROM PATIENT.
--- NOTE | 2024-10-12 17:19 | NUR ---
PT HAS BEEN INCONTINENT OF URINE THROUGHOUT THE DAY DESPITE MULTIPLE ATTEMPTS OF ASSITING PATIENT TO THE BATHROOM OR USE OF URINAL. PATIENT HAS REMAINS ALERT AND ORIENTED TO SELF ONLY WITH MULTIPLE ATTEMPTS OF REORIENTATION. PATIENT HAS REFUSED MEALS THROUGHOUT THE DAY, MAKING REPTATIVE STATEMENTS OF WHAT HE WOULD LIKE TO ORDER FOR MEALS TOMORROW. ATTEMPTS OF PROVIDING ENSURE AND OTHER MEAL OPTIONS WITH PATIENT CONTINUING TO REFUSE. PATIENT HAS PICKED AT [facility] TO LUE, THIS RN PLACED MEPILEX TO OPEN AREA AND TO PREVENT FURTHER PICKING. DAUGHTER UPDATED ON PATIENT. DR. DEAL AWARE OF PATIENT STATUS, NO NEW ORDERS AT THIS TIME.
--- NOTE | 2024-10-12 19:00 | NUR ---
REPORT TO STACEY KIDD.
[2024-10-12 19:11] VITALS: BP 105/68
--- NOTE | 2024-10-12 21:00 | NUR ---
PT SLEEPING IN BED. ONLY ORIENTED TO SELF. DRESSINGS CLEAN DRY AND INTACT. DENIES PAIN.
[2024-10-13 07:00] VITALS: BP 127/81
--- NOTE | 2024-10-13 08:43 | NUR ---
PT SITTING UP IN CHAIR FOR BREAKFAST. PT IS ORIENTED TO SELF AND DATE, BUT THOUGHT HE WAS IN [place]. PT NEEDED ASSISTANCE TO FEED SELF HE WAS UNABLE TO GET FOOD ON THE FORK AND UP TO HIS MOUTH. PATIENT ATE 6 BITES OF BREAKFAST, THEN TOOK PILLS AND STATED HE WAS FULL. WAS ABLE TO SWALLOW PILLS WHOLE, ONE AT A TIME WITHOUT DIFFICULTY. DENIES PAIN.
--- NOTE | 2024-10-13 11:30 | NUR ---
MEPILEX CHANGED TO LEFT HEEL. SCANT AMOUNT OF BLOOD ON OLD DRESSING.
--- NOTE | 2024-10-13 16:43 | NUR ---
PATIENT HAS BEEN VERY LETHARGIC AND DIFFICULT TO AROUSE THIS AFTERNOON. AL HULL APRN HAS BEEN NOTIFIED. VERBAL ORDER FROM AL TO NOT CHANGE IV SITE AT THIS TIME WELL.
[2024-10-13] MEDS ORDERED: LORazepam 0.5 MG TABLET PO PRN (18:15)
[2024-10-13] MEDS ORDERED: Scopolamine 1 MG Delivered 3-Day PATCH TD SCH (18:15)
[2024-10-13] MEDS ORDERED: Morphine Oral Concentrate 20 MG/ML UD SL PRN (18:15)
--- NOTE | 2024-10-13 18:30 | NUR ---
PT HAS ELECTED TO BE COMFORT CARES. IV HAS BEEN REMOVED. SCOPALAMINE PATCH PLACED BEHIND LEFT EAR.
--- NOTE | 2024-10-13 18:52 | NUR ---
REPORT GIVEN TO STACEY SCHOFIELD
--- NOTE | 2024-10-13 18:59 | NUR ---
Report received from Katiana IBARRA
[2024-10-14 05:38] LABS: KAPPA LAMBDA RATIO 3.15 (())
--- NOTE | 2024-10-14 07:00 | NUR ---
RESUMED CARE FROM STACEY SCHOFIELD.
--- NOTE | 2024-10-14 17:48 | NUR ---
PATIENT AGGITATED MAJORITY OF SHIFT. REFUSING MEALS AND MEDICATIONS ALTHOUGH REPORTING PAIN. PATIENT WAS INCONTINENT OF URINE THIS AM, CONTINENT THE REST OF THE SHIFT AND ASSISTED TO THE BATHROOM WITH WALKER AND GAIT BELT WITH 2 ASSIST. PATIENT HAD FAMILY VISIT, WATCHING FOOTBALL GAMES AND CONSUMED HALF A PIECE OF PIE. PATIENT HAS REFUSED TO LAY IN BED, REPOSITIONED WITHIN RECLINER THROUGHOUT SHIFT.
--- NOTE | 2024-10-14 18:43 | NUR ---
REPORT TO STACEY SCHOFIELD.
--- NOTE | 2024-10-14 19:16 | NUR ---
Pt is very agitated this evening is adamant that he needs to rosanna a call this rn was told that pt called 911 during the day. This rn offered pain medications since pt stated being in pain, pt refused pain medications and medications for agitation and anxiety. this rn tried comforting conversation to no avail. pt is refusing meds at this time. this rn will offer medications at a later time.
--- NOTE | 2024-10-14 21:56 | NUR ---
PT ACCEPTED MORPHINE PO PER JAN AND THAT HELPED HIM RELAX, PT ACCEPTED SCHEDULED LORAZEPAM PER JAN. PT IN BED AT LOWEST POSITION WITH CALL LIGHT IN REACH.
--- NOTE | 2024-10-15 07:00 | NUR ---
RESUMED CARE FROM STACEY SCHOFIELD.
--- NOTE | 2024-10-15 08:00 | NUR ---
PATIENT REFUSING BREAKAST AND TO FILL OUT MENUS FOR TODAY. REFUSING ENSURE. PATIENT REMAINS IN BED, SUPINE, ALARMED, CALL LIGHT WITHIN REACH.
--- NOTE | 2024-10-15 13:00 | NUR ---
AT BEDSIDE, FED PATIENT A MAGDY.
--- NOTE | 2024-10-15 15:00 | NUR ---
WOUND DRESSING CHANGES PERFORMED BY STACEY TANNER.
--- NOTE | 2024-10-15 15:00 | NUR ---
WOUND CARE DRESSING CHANGED TO THORACIC SPINE AND BUTTOCKS AT THIS TIME. DRESSINGS REMOVED, SCANT AMOUNT OF DRAINAGE NOTED ON DRESSING. WOUNDS CLEANSED WITH VOSHE AND DRIED WITH 4x4. COLLAGEN IRENE PLACED IN WOUND BED, COVERED WITH HYDROFERA BLUE AND MEPILEX DRESSINGS. PATIENT DENIES PAIN AND TOLERATED WELL.
--- NOTE | 2024-10-15 17:44 | NUR ---
THIS RN AND STACEY FIGUEROA ASSISTED PATIENT WITH WALKER AND GAITBELT TO BSC. PATIENT URINATED UNMEASURED. ASSISTED BACK INTO BED, POSITIONED SUPINE. STACEY FIGUEROA FEEDING PATIENT DINNER AT THIS TIME.
--- NOTE | 2024-10-15 18:44 | NUR ---
REPORT TO STACEY SCHOFIELD.
--- NOTE | 2024-10-15 21:08 | NUR ---
PT IN BED ASLEEP UNABLE TO AROUSE TO FULLY AWAKE PT NODDED ANSWERS TO THIS RN PT STATED FEELING TIRED, PT ALLOWED FOR ASSESSMENT TO BE DONE, PT DID NOT WAKE UP FULLY, PT IN COMFORT CARE, NO S/S OF RESPIRATORY DISTRESS NOR ANXIETY OR AGITATION NOTED AT THIS TIME. PT LEFT IN BED AT LOWEST POSITION ALARMED W CALL LIGHT IN REACH
--- NOTE | 2024-10-16 13:17 | NUR ---
PATIENT IS CURRENTLY ON COMFORT CARE. PATIENT ON COMMODE UPON ENTERING ROOM. HE HAD BEEN SITTING ON IT FOR ABOUT 15MIN AND REFUSING TO GET OFF. HE WAS ASSIST X3 TO HELP GET PATIENT OFF THE COMMADE. HE WOULDN'T LET GO OFF THE CHAIR ARMS. HE KEPT STATING THAT HE NEEDED TO PEE, EVEN THOUGH HE ALREADY HAD. WHEN NURSE WAS EXPLAINING TP PATIENT THAT HE DID VOID, HE REPLIED,"WHY DID YOU PUT WATER IN IT?" AND "WHY ARE YOU DOING THIS TO ME." AFTER HE WAS ASSISTED BACK INTO BED, HE FELL ASLEEP QUICKLY. HE DENIES PAIN WHEN ASKED. HE REFUSED BREAKFAST AND LUNCH. HE DID ASK FOR A DRINK OF COKE. PATIENT IS RESTING IN HIS BED AT THIS TIME.
--- NOTE | 2024-10-16 21:00 | NUR ---
Patient resting in bed and occasionally states oh help me, lord help me. Refuses ativan and asks nurse to stop when assessing with stethoscope. Denies pain at this time.
--- NOTE | 2024-10-17 05:19 | NUR ---
Patient has been resting with eyes closed. Awakened to reposition several times during the night. Denies pain "Don't wake me, I don't want to move, don't want to get up. Patient in comfort care. Side rails up. Bed alarm on.
--- NOTE | 2024-10-17 08:19 | NUR ---
PATIENT REFUSED THIS NURSE TO LISTEN TO LUNGS AND ABDOMINAL SOUNDS. HE DENIED PAIN WHEN ASKED. WHEN ASKED ABOUT LISTEN TO LUNGS HEART AND ABDOMEN, HE STATED, "LEAVE ME ALONE." PATIENT IS ON COMFORT CARE. HE IS RESTING IN BED. HE WILL HOLLAR OUT FOR HELP, AND WHEN HELP WAS OFFERED, HE REFUSED CARE. HE REFUSED BREAKFAST AND FLUIDS. STAFF WILL CONTINUE TO MONITOR.
--- NOTE | 2024-10-17 16:56 | NUR ---
discussed in further detail with Shey regarding [employer] issuance of non coverage. Advised [employer] does not pay for comfort care. Their plan will not cover Hospice. Shey initially wanted [facility] to stay here at [place]. This CM advised her of the daily rate. Shey would like referral sent to [facility]. "that little hospital gets that much for a daily rate?" Explained that is Medicare determination. [facility] will accept. [facility] will provide transportation to [facility]. Please give time the ABN describing the non coverage. 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 Nurse to Nurse report phone number is [phone]
--- NOTE | 2024-10-17 20:30 | NUR ---
CALLED JHONNY, DAUGHTER, AND GAVE HER AN UPDATE ON PATIENT'S STATUS. [phone].
--- NOTE | 2024-10-17 20:37 | NUR ---
PT ALERT TO SELF, YEAR AND SITUATION, BUT WAS UNSURE OF LOCATION. RESISTANT TO POSITION CHANGE AND DOES NOT WANT NIGHT MEDS HE STATES IT IS "TOO EARLY". WILL TRY AGAIN LATER. REDDENED SPOTS NOTED ON R BUTTOCK. BARRIER CREAM APPLIED AND TURNED ONTO L SIDE.
[2024-10-18 05:38] LABS: A/G RATIO (PEP) 1.1 (0.7-1.7); BETA GLOBULINS (PEP) 0.8 g/dL (0.7-1.3)
--- NOTE | 2024-10-18 07:00 | NUR ---
REPORT RECIEVED FROM STACEY CERON
--- NOTE | 2024-10-18 08:00 | NUR ---
PATIENT RESTING IN BED WITH EYES CLOSED, HAS REQUESTED PRN LORAZEPAM AT THIS TIME. PATIENT DENIES PAIN, PATIENT IS ON COMFORT CARES. PRN ATIVAN AND ROXANOL GIVEN AT THIS TIME. PATIENT MOUTH SWABBED AND FACE CLEANED AT THIS TIME. PATIENT IS ALERT AND ORIENTED TO SELF AND SITUATION, CONFUSED ON TIME OF DAY. PATIENT POSTIONED IN BED FOR COMFORT, DENIES OTHER NEEDS OR COMPLAINTS AT THIS TIME. CALL LIGHT WITHIN REACH.
[2024-10-18 09:45] VITALS: BP 128/72
--- NOTE | 2024-10-18 10:30 | NUR ---
[facility] ARRIVED TO TRANSPORT PATIENT TO HOSPICE HOUSE AT THIS TIME. ALL PATIENT ITEMS AND BELONGINGS SENT WITH EMS CREW AT THIS TIME. REPORT CALLED TO [facility].
[2024-10-19 12:02] LABS: PROTEIN TOTAL FOR PEP 5.9
== END 2024-10-18 10:35 | disposition hospice, inpatient (51) | DRG 593 ==
LOC: MED/SURG 14:07
PROVIDERS: Family Medicine; ADMIT Family Medicine
DX: L89.104 Pressure ulcer of unspecified part of back, stage 4 (principal); D61.818 Other pancytopenia; Z68.1 Body mass index [BMI] 19.9 or less, adult; L89.152 Pressure ulcer of sacral region, stage 2; M40.204 Unspecified kyphosis, thoracic region; K21.9 Gastro-esophageal reflux disease without esophagitis; G47.00 Insomnia, unspecified; J30.2 Other seasonal allergic rhinitis; Z66 Do not resuscitate
CPT/HCPCS: A6021; A6210; A6240; A6261; J0878; J1650; J7512